=== PATIENT | male | born 1990 | race African-American/Black ===

== ENCOUNTER 2016-12-31 09:11 | Emergency (ER) | payer MEDICAID ==
[~2016-12-31] VITALS: Ht 157.5 cm; Wt 69.0 kg
[~2016-12-31 09:11] MED LIST: PHEN100C4; TOPA; TOPI-60
[2016-12-31] MEDS ORDERED: MORPHINE SULFATE 4 MG/ML CPJ (NOT FOR IM USE) IV STA (09:39)
[2016-12-31] MEDS ORDERED: SODIUM CHLORIDE 0.9% 1,000 ML IV ONE (09:39)
[2016-12-31] MEDS ORDERED: ONDANSETRON HCL 4MG/2ML VIAL IV STA (09:39)
[2016-12-31] MEDS ORDERED: CEFAZOLIN 1000MG PREMIX 50 ML IV ONE (09:45)
[2016-12-31 13:30] VITALS: BP 140/68
== END 2016-12-31 14:06 | disposition short-term general hospital (02) ==
LOC: ER 09:46
DX: S92.335B Nondisplaced fracture of third metatarsal bone, left foot, initial encounter for open fracture (principal); G40.909 Epilepsy, unspecified, not intractable, without status epilepticus; Z88.6 Allergy status to analgesic agent; Z88.8 Allergy status to other drugs, medicaments and biological substances; Z91.018 Allergy to other foods; X93.XXXA Assault by handgun discharge, initial encounter; Y92.488 Other paved roadways as the place of occurrence of the external cause
CPT/HCPCS: 73630; 96365; 96375; 99291; J0690; J2270; J2405; J7030; Z7610